=== PATIENT | male | born 1965 | race American Indian/Alaskan Native ===

== ENCOUNTER 2016-11-12 01:31 | Emergency (ER) | payer OTHER ==
[2016-11-12 02:04] VITALS: O2SAT 99
[2016-11-12] MEDS ORDERED: Lidocaine 2% Jelly (Uro-Jet) TOP ONE (02:05)
[2016-11-12] MEDS ORDERED: Lidocaine 2% Jelly (Uro-Jet) ONE (02:07)
--- NOTE | 2016-11-12 02:25 | C.PDOC ---
History Of Present Illness pt is s/p turp, and developed urinary retention. last voided around 9 pm. Lots of pressure. occasionally passing large clots. Pt in distress due to urinary retention Time Seen by Provider: 11/12/16 02:21 Chief Complaint (Nursing): Male Genitourinary History Per: Patient History/Exam Limitations: no limitations Onset/Duration Of Symptoms: Hrs Current Symptoms Are (Timing): Worse Severity: Severe Pain Scale Rating Of: 8 Quality Of Discomfort: Sharp, Cramping, Pressure Associated Symptoms: denies: Fever, Chills, Nausea Alleviating Factors: None Recent travel outside of the [place]: No Additional History Per: Patient Past Medical History Reviewed: Historical Data, Nursing Documentation, Vital Signs Vital Signs: Last Vital Signs Temp 98.4 F 11/12/16 03:12 Pulse 72 11/12/16 03:12 Resp 18 11/12/16 03:12 BP 144/88 11/12/16 03:12 Pulse Ox 99 11/12/16 05:03 Family History: States: No Known Family Hx - Social History Hx Alcohol Use: Yes Hx Substance Use: No Review Of Systems Constitutional: Negative for: Fever, Chills Genitourinary: Positive for: Hematuria, Other (urinary retention) Musculoskeletal: Negative for: Back Pain Skin: Negative for: Rash Neurological: Negative for: Weakness Psych: Negative for: Anxiety Physical Exam - Physical Exam Appears: In Acute Distress Skin: Warm, Dry Gastrointestinal/Abdominal: Soft, Tenderness, Distention (suprapubic) Back: No CVA Tenderness Male Genital: No Testicular Tenderness, No Testicular Swelling, No Inguinal Tenderness, Circumcised Extremity: Normal ROM Extremity: Bilateral: Atraumatic Pulses: Left Dorsalis Pedis: Normal, Right Dorsalis Pedis: Normal Neurological/Psych: Oriented x3, Normal Speech ED Course And Treatment O2 Sat by Pulse Oximetry: 99 Pulse Ox Interpretation: Normal Progress Note: placed a [address] freeman without any difficulty.bloody urine draining with clots. pt with relief. Tolerated the procedure well. draing well Reevaluation Time: 05:28 Reassessment Condition: Improved Medical Decision Making Medical Decision Making: Upon provider reevaluation patient is feeling better, is medically stable, and requires no further treatment in the ED at this time. Patient will be discharged home . Counseling was provided and all questions were answered regarding diagnosis and need for follow up with your own urologist. There is agreement to discharge plan. Return if symptoms persist or worsen. Disposition Counseled Patient/Family Regarding: Studies Performed, Diagnosis, Need For Followup - Disposition Disposition: HOME/ ROUTINE Disposition Time: 02:21 Condition: FAIR Additional Instructions: Please follow up with your urologist Instructions: Urinary Retention in Men (ED), Freeman Catheter Placement and Care (ED), Acute Hematuria (DC), Urinary Leg Bag (GEN) Forms: [employer] (Irish) - Clinical Impression Clinical Impression: Hematuria, Acute urinary retention
[2016-11-12 03:13] VITALS: RESP 18
[2016-11-12 05:53] VITALS: BP 137/85; PULSE 77; TEMP 98
== END 2016-11-12 06:20 | disposition home or self-care (01) ==
LOC: C.ER 01:31
DX: R33.8 Other retention of urine (principal); R31.9 Hematuria, unspecified

== ENCOUNTER 2016-11-12 17:33 | Emergency (ER) | payer OTHER ==
--- NOTE | 2016-11-12 19:28 | C.PDOC ---
History Of Present Illness 51 year old male with a history of prostate CA presents to the ED with complaints of difficult urinating for one day. Patient notes he has had "thick clots" in his urine and he came to the ED last night for evaluation. He states he received "a flush for a couple of hours" which relief his symptoms but the clots began again today. Patient has surgery on 10/21/2016 to have his prostate removed. He notes he was urinating well on his own following a few days after the surgery until yesterday. Patient denies back pain, fever, chills, or any physical pain. Time Seen by Provider: 11/12/16 19:18 Chief Complaint (Nursing): Male Genitourinary History Per: Patient History/Exam Limitations: no limitations Onset/Duration Of Symptoms: Days (1 day ), Intermittent Episodes Current Symptoms Are (Timing): Still Present Associated Symptoms: denies: Fever, Chills, Nausea, Vomiting, Back Pain Alleviating Factors: None Recent travel outside of the [place]: No Additional History Per: Prior Records Past Medical History Reviewed: Historical Data, Nursing Documentation, Vital Signs Vital Signs: Last Vital Signs Temp 98.1 F 11/12/16 20:37 Pulse 81 11/12/16 20:37 Resp 18 11/12/16 20:37 BP 149/93 H 11/12/16 20:37 Pulse Ox 98 11/12/16 20:49 Family History: States: Unknown Family Hx - Social History Hx Alcohol Use: Yes Hx Substance Use: No Review Of Systems Constitutional: Negative for: Fever, Chills Gastrointestinal: Negative for: Nausea, Vomiting, Abdominal Pain Genitourinary: Positive for: Hematuria. Negative for: Incontinence Physical Exam - Physical Exam Appears: Non-toxic, No Acute Distress Skin: Warm, Dry Head: Atraumatic, Normacephalic Neck: Supple Chest: Symmetrical, No Deformity Cardiovascular: Rhythm Regular (S1 and S2 within normal limits. ), No Murmur Respiratory: No Rales, No Rhonchi, No Wheezing, Other (clear to auscultation bilaterally ) Gastrointestinal/Abdominal: Soft, No Tenderness, No Distention, No Guarding, No Rebound Back: No CVA Tenderness Male Genital: Other (Indwelling freeman catheter in place draining tea colored urine. ) Extremity: Normal ROM, No Tenderness, No Pedal Edema, No Calf Tenderness, No Deformity, No Swelling Pulses: Left Dorsalis Pedis: Normal (2+ distal pulses), Right Dorsalis Pedis: Normal (2+ distal pulses ) Neurological/Psych: Oriented x3 ED Course And Treatment O2 Sat by Pulse Oximetry: 98 (RA) Progress Note: Bladder scan was ordered. Medical Decision Making Medical Decision Making: Pt with known prostate YENI/P PROSTATECTOMY BACK in 2000,now with recurrant hematuria.Does not appear to be in acute retention.We will check patency of freeman by getting bladder scan.If not retaining we will have him see his urologist tomorrow Progress note: 20:40 Bladder scan showed 33 cc of urine. Pt will be discharged to follow up with urologist. Disposition Doctor Will See Patient In The: Office - Disposition Disposition: HOME/ ROUTINE Disposition Time: 20:39 Condition: GOOD Additional Instructions: see your urologist as scheduled tomorrow Forms: [employer] (Pakistani) - Clinical Impression Clinical Impression: Hematuria - Scribe Statement The provider has reviewed the documentation as recorded by the Scribflaco Wilburn All medical record entries made by the [place] were at my direction and personally dictated by me. I have reviewed the chart and agree that the record accurately reflects my personal performance of the history, physical exam, medical decision making, and the department course for this patient. I have also personally directed, reviewed, and agree with the discharge instructions and disposition.
[2016-11-12 20:37] VITALS: BP 149/93; PULSE 81; RESP 18; TEMP 98.1
[2016-11-12 20:41] VITALS: O2SAT 98
== END 2016-11-12 20:50 | disposition home or self-care (01) ==
LOC: C.ER 17:33
DX: R31.9 Hematuria, unspecified (principal)